=== PATIENT | male | born 1945 | race Caucasian/White ===

== ENCOUNTER 2017-06-27 09:52 | Inpatient (IN) | payer MEDICARE ==
[~2017-06-27] VITALS: Ht 180.3 cm; Wt 109.0 kg
[2017-06-27] VITALS (11 sets, daily range): BP systolic 104; BP diastolic 62; PULSE 72–102; RESP 16; TEMP 99.6; O2SAT 0–100
[2017-06-27] MEDS ORDERED: SUCCINYLCHOLINE CHLORIDE 200 MG/10 ML VIAL ONE (10:01)
[2017-06-27] MEDS ORDERED: MANNITOL INJ 50 ML ONE (10:02)
[2017-06-27] MEDS ORDERED: MANNITOL INJ 100 ML ONE (10:05)
[2017-06-27] MEDS ORDERED: MIDAZOLAM HCL 5 MG/ML VIAL (1 ML) ONE ×2 (10:12→10:13)
[2017-06-27 10:17] LABS: AUTOMATED NEUTROPHIL # 7.6 TH/MM3 (1.8-7.7); BASOPHIL # 0.1 TH/MM3 (0-0.2); BASOPHIL % 0.7 % (0.0-2.0); EOSINOPHIL # 0.3 TH/MM3 (0-0.4); EOSINOPHIL % 2.5 % (0.0-4.0); HEMOGLOBIN 13.8 GM/DL (13.0-17.0); LYMPH % 35.3 % (9.0-44.0); LYMPHOCYTE # 4.9 TH/MM3 (1.0-4.8); MEAN CELL VOLUME 91.6 FL (80.0-100.0); MEAN CORPUSCULAR HEMOGLOBIN 30.8 PG (27.0-34.0); MEAN CORPUSCULAR HGB CONC 33.6 % (32.0-36.0); MEAN PLATELET VOLUME 9.3 FL (7.0-11.0); MONO % 7.4 % (0.0-8.0); NEUT % 54.1 % (16.0-70.0); PLATELET COUNT 363 TH/MM3 (150-450); RED BLOOD COUNT 4.48 MIL/MM3 (4.50-5.90); RED CELL DISTRIBUTION WIDTH 15.3 % (11.6-17.2)
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
[2017-06-27] MEDS: SODIUM CHLOR 0.9% 1000 ML INJ 1,000 ML IV SCH ×3 (10:23→23:24)
[2017-06-27] MEDS ORDERED: ENALAPRILAT 1.25 MG/ML VIAL IV PUSH PRN (10:30)
[2017-06-27] MEDS ORDERED: NURSING INFORMATION XX SCH (10:30)
[2017-06-27] MEDS ORDERED: PROPOFOL 1000 MG/100 ML INJ 100 ML IV PRN (10:30)
[2017-06-27] MEDS ORDERED: SODIUM CHLORIDE 0.9% FLUSH 10 ML FLUSH IV FLUSH PRN (10:30)
[2017-06-27] MEDS ORDERED: ONDANSETRON HCL 4 MG/2 ML VIAL IV PUSH PRN (10:30)
[2017-06-27] MEDS ORDERED: CHLORHEXIDINE GLUCONATE 2 % 1 PACK (2 CLOTHS) TOP PRN (10:30)
[2017-06-27] MEDS ORDERED: fentaNYL DRIP 250 ML IV PRN (10:30)
[2017-06-27 10:34] LABS: PROTHROMBIN TIME - PATIENT 10.5 SEC (9.8-11.6)
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
[2017-06-27] MEDS ORDERED: ETOMIDATE 20 MG/10 ML VIAL ONE (10:55)
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
[2017-06-27] MEDS ORDERED: MAGNESIUM HYDROXIDE SUSP 30 ML CUP PO PRN (11:00)
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
[2017-06-27] MEDS ORDERED: PROPOFOL 1000 MG/100 ML IV PRN (11:30)
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
[2017-06-27 11:35] LABS: BACTERIA, URINE RARE /hpf; BILIRUBIN, URINE NEG (NEG); BLOOD, URINE TRACE (NEG); GLUCOSE,URINE NEG (NEG); KETONE, URINE NEG (NEG); NITRITE,URINE NEG (NEG); PH, URINE 5.5 (5.0-8.5); URINE COLOR LIGHT-YELLOW (YELLW/STRAW); URINE LEUKOCYTE ESTERASE NEG (NEG)
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
[2017-06-27] MEDS: NOREPINEPHRINE INJ 4 MG in SODIUM CHLOR 0.9% 250 ML INJ 246 ML IV PRN ×2 (12:00→23:38)
[2017-06-27] MEDS ORDERED: NOREPINEPHRINE INJ 4 MG in SODIUM CHLOR 0.9% 250 ML INJ 250 ML IV PRN (12:00)
[2017-06-27] MEDS: fentaNYL 2,500 MCG/NS 250 ML IV PRN (12:13)
[2017-06-27] MEDS: VASOPRESSIN 40 U/D5W 100 ML Hypotension, do NOT titrate (enter ordered rate) IV SCH ×2 (13:45)
[2017-06-27] MEDS ORDERED: ACETAMINOPHEN 1000 MG/100 ML 100 ML IV PRN (16:00)
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
[2017-06-27] MEDS: DOCUSATE SODIUM 100 MG CAP PO SCH (21:00)
[2017-06-28] VITALS (11 sets, daily range): BP systolic 84–144; BP diastolic 51–79; PULSE 58–136; RESP 16–22; TEMP 97.4–100.7; O2SAT 100
[2017-06-28 03:44] LABS: BICARBONATE 20.1 MEQ/L (21.0-32.0); CALCIUM 7.6 MG/DL (8.5-10.1); CREATININE 1.74 MG/DL (0.60-1.30)
[2017-06-28] MEDS ORDERED: CHLORHEXIDINE GLUCONATE 2 % 1 PACK (2 CLOTHS) TOP SCH (04:00)
[2017-06-28] MEDS: fentaNYL 2,500 MCG/NS 250 ML IV PRN (04:11)
[2017-06-28] MEDS: SODIUM CHLOR 0.9% 1000 ML INJ 1,000 ML IV SCH (06:23)
[2017-06-28] MEDS: VASOPRESSIN 40 U/D5W 100 ML Hypotension, do NOT titrate (enter ordered rate) IV SCH ×2 (06:38)
[2017-06-28] MEDS: DOCUSATE SODIUM 100 MG CAP PO SCH (07:49)
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
[2017-06-28] MEDS ORDERED: LORazepam 2 MG/ML VIAL IV PUSH PRN (12:30)
[2017-06-28] MEDS ORDERED: MORPHINE SULFATE 4 MG/ML INJ IV PUSH PRN (12:30)
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
== END 2017-06-28 14:50 | disposition expired | DRG 84 ==
LOC: NEPI 09:52 → N03A 10:27 → EDBD 10:27
PROVIDERS: ADMIT Surgery; ATTEND Surgery
PROC: 5A1935Z Respiratory Ventilation, Less than 24 Consecutive Hours (ICD-10-PCS; principal; 2017-06-27)
PROC: 0BH17EZ Insertion of Endotracheal Airway into Trachea, Via Natural or Artificial Opening (ICD-10-PCS; 2017-06-27)
DX: S02.0XXB Fracture of vault of skull, initial encounter for open fracture (principal); S06.5X9A Traumatic subdural hemorrhage with loss of consciousness of unspecified duration, initial encounter; S06.6X9A Traumatic subarachnoid hemorrhage with loss of consciousness of unspecified duration, initial encounter; I46.9 Cardiac arrest, cause unspecified; Z66 Do not resuscitate; Z51.5 Encounter for palliative care; R40.2432 Glasgow coma scale score 3-8, at arrival to emergency department
CPT/HCPCS: 31500; 36600; 70450; 70486; 71045; 72125; 80048; 80307; 81001; 82805; 85025; 85610; 85730; 86850; 86900; 86901; 87086; 87641; 94002; 94003; 96374; 96375; J0131; J0330; J2060; J2150; J2250; J2270; J3010; J7030; J7050